=== PATIENT | male | born 1970 | race Caucasian/White ===

== ENCOUNTER 2020-09-05 19:05 | Emergency (ER) | payer MEDICARE, BC ==
[2020-09-05 19:48] LABS: HEMOGLOBIN 14.8 gm/dl (14.0-17.5); RED BLOOD COUNT 5.23 M/UL (4.20-5.50); WHITE BLOOD COUNT 6.6 K/UL (4.5-11.0)
[2020-09-05 20:10] LABS: BUN/CREATININE RATIO 14 (0-10)
== END 2020-09-06 00:20 | disposition home or self-care (01) ==
LOC: ER1 19:05
PROVIDERS: Physician Assistant
DX: R07.89 Other chest pain (principal); I10 Essential (primary) hypertension; Z88.5 Allergy status to narcotic agent; Z79.899 Other long term (current) drug therapy; F17.220 Nicotine dependence, chewing tobacco, uncomplicated
CPT/HCPCS: 70450; 74022; 80053; 81001; 82550; 82553; 83690; 83874; 84484; 85025; 93005; 96374; 99285; J1885